=== PATIENT | female | born 1970 | race Caucasian/White ===

== ENCOUNTER → 2016-11-12 | Outpatient (CLI) | payer MEDICAID ==
[~2016-11-12] MED LIST: AZITHROMYCIN250 M1 PO; BACTRIM DS 8001 TAB PO; CIPRO 500MG TA500 MG PO; DONNATAL1 TAB PO; EXCEDRIN TENSIO1 CAP; FLEXERIL10 MG PO; KEFLEX 500MG.500 MG PO; LORTAB 5/500 501 TAB PO; MIRALAX17 GM/DOSE PO; NAPROSYN 500MG500 MG PO; PAXIL20 MG PO; PHENERGAN 25MG.25 M1 PO; PROVENTIL0.09 MG/AC IH; TESSALON PERLE200 MG PO; VICODIN 5/500 T1 TAB PO; WELLBUTRIN75 MG PO
[2016-11-12 20:04] LABS: BUN 6 mg/dL (7-18)
[2016-11-12 20:21] LABS: GFR (ESTIMATED) 78 ML/MIN (59-)
== END ==
LOC: LAB 17:51
PROVIDERS: Emergency Medicine
DX: E11.9 Type 2 diabetes mellitus without complications (principal)